=== PATIENT | female | born 1995 | race Caucasian/White ===

== ENCOUNTER → 2017-04-13 | Outpatient (CLI) | payer BC ==
[~2017-04-13] MED LIST: IBUP-1050 PO
[2017-04-16 08:05] LABS: CHLAMYDIA TRACH RNA*** NOT DETECTED (NOT DETECTED); GC (NEIS GONORRHOEAE)RNA** NOT DETECTED (NOT DETECTED)
== END | disposition home or self-care (01) ==
LOC: C.LABSPEC 14:40
PROVIDERS: ATTEND Obstetrics & Gynecology
DX: Z34.01 Encounter for supervision of normal first pregnancy, first trimester (principal)

== ENCOUNTER → 2017-04-13 | Outpatient (CLI) | payer BC | END | disposition home or self-care (01) | LOC: C.PAPS 15:12 | PROVIDERS: ATTEND Obstetrics & Gynecology | DX: Z34.01 Encounter for supervision of normal first pregnancy, first trimester (principal); R85.610 Atypical squamous cells of undetermined significance on cytologic smear of anus (ASC-US) ==

== ENCOUNTER → 2017-04-26 | Outpatient (CLI) | payer BC | END | disposition home or self-care (01) | LOC: C.LAB 11:45 | PROVIDERS: ATTEND Obstetrics & Gynecology | DX: O02.1 Missed abortion (principal); Z3A.00 Weeks of gestation of pregnancy not specified ==

== ENCOUNTER → 2017-05-03 | Outpatient (CLI) | payer BC | END | disposition home or self-care (01) | LOC: C.LAB 17:38 | PROVIDERS: ATTEND Obstetrics & Gynecology | DX: O02.1 Missed abortion (principal) ==

== ENCOUNTER → 2017-05-10 | Outpatient (CLI) | payer BC ==
[2017-05-10 15:53] LABS: BASO % 0.6 %; BASO ABS # 0.05 K/uL (0-0.2); COMPLETE YES; HEMATOCRIT 38.5 % (37-47); IG% 0.2 %; LYMPH % 22.5 %; LYMPH ABS # 1.96 K/uL (1.2-3.4); MEAN CELL VOLUME 89.1 fL (80-100); MEAN CORPUSCULAR HEMOGLOBIN 30.8 pg (25-34); MEAN CORPUSCULAR HGB CONC 34.5 g/dl (32-36); MEAN PLATELET VOLUME 9.7 fL (7.4-10.4); MONO % 5.5 %; NEUT % 70.2 %; PLATELET COUNT 243 K/uL (130-400); RED BLOOD COUNT 4.32 M/uL (4.2-5.4)
== END | disposition home or self-care (01) ==
LOC: C.LAB 15:07
PROVIDERS: ATTEND Obstetrics & Gynecology
DX: O02.1 Missed abortion (principal)

== ENCOUNTER → 2017-05-11 | Day surgery (SDC) | payer BC ==
[2017-05-10 14:26] VITALS: BMI 19.0
[~2017-05-11] VITALS: Ht 157.5 cm; Wt 47.7 kg
[~2017-05-11] MED LIST changes: +ATROPINE SULFATE 0.1 MG/ML 5ML SYR IV PRN; +DEXAMETHASONE SOD INJ 4 MG/ML VIAL ONE; +FENTANYL CITRATE INJ 50 MCG/1 ML 2 ML VIAL IV PRN; +FENTANYL CITRATE INJ 50 MCG/1 ML 2 ML VIAL ONE; +HYDROCODONE/ACETAMOPHEN 5/325MG TAB PO PRN; -IBUP-1050 PO; +IBUPROFEN 600 MG TAB PO PRN; +KETOROLAC TROMETHAMINE 15 MG/ML VIAL IV. PRN; +LACTATED RINGER'S 1000ML 1,000 ML IV SCH; +LIDOCAINE HCL 2% 2 ML VIAL (20MG/ML) ONE; +METHYLERGONOVINE MALEATE 0.2 MG/ML AMP ONE; +MIDAZOLAM HCL 1 MG/ML 2ML VIAL ONE; +ONDANSETRON INJ 2 MG/ML 2 ML VIAL IV PRN; +ONDANSETRON INJ 2 MG/ML 2 ML VIAL ONE; +OXYCODONE/ACETAMINOPHEN 5-325 TAB PO PRN; +OXYTOCIN INJ 10 UNITS/ML VIAL ONE; +PROMETHAZINE HCL INJ 12.5 MG in SODIUM CHLORIDE 0.9% 50ML 50 ML IV PRN; +PROPOFOL IV EMULSION 10 MG/ML 20 ML VIAL IV ONE; +SODIUM CHLORIDE 0.9% 1000ML 1,000 ML IV SCH
--- NOTE | 2017-05-11 10:40 | HISTORY & PHYSICAL EXAMINATION ---
DATE OF ADMISSION: 05/11/2017 HISTORY OF PRESENT ILLNESS: The patient is a 21-year-old 1, para 0. Her general health is good. She was seen in my office for care and delivery. Her last menstrual period was 02/04/2017. On her first ultrasound, she was noted to have a gestational sac of 6 weeks 6 days. There was no pole seen and there was some abnormally large yolk sac. For followup, she did blood work. Her initial blood work revealed a beta units of 27,294 with a progesterone level of 24.68. She had her beta units repeated about 6 days later and they had fallen to 24,035. At this point, a diagnosis of demise was confirmed and she has been scheduled for an outpatient D&E. PAST MEDICAL HISTORY: SOCIAL HISTORY: She is a light smoker, about 4-5 cigarettes a day. No history of excessive alcohol intake. She is ____. FAMILY HISTORY: Noncontributory. PAST SURGICAL HISTORY: She has no previous surgery. MEDICAL: No medical problems. ALLERGIES: No known drug allergies. REVIEW OF SYSTEMS: HEAD: No symptoms of frequent or severe headaches. EYES: No symptoms of blurred vision or double vision. EARS: No symptoms of frequent ear infections or difficulty hearing. NOSE: No symptoms of frequent nosebleeds or difficulty breathing through her nose. THROAT: No symptoms of frequent or severe sore throats or difficulty swallowing. RESPIRATORY SYSTEM: No history of asthma, chest pain, or shortness of breath. PHYSICAL EXAMINATION: GENERAL: Well-developed and well-nourished 21-year-old white female, alert and oriented x3 and cooperative, in no acute distress, appears her stated age. EYES: Conjunctivae are pink. Sclerae white. No evidence of jaundice. EARS: Had normal light reflex bilaterally. NOSE: Had normal mucosa. Septum is midline. There were no polyps. THROAT: No erythema or evidence of infection. Teeth are in good state of repair. HEAD: Was normocephalic and normal distribution of hair. NECK: Supple. Trachea midline. Thyroid is not enlarged. There is no adenopathy appreciated. Both carotids are of good intensity. CHEST: Clear to auscultation and percussion. No wheezes, rales or rhonchi appreciated. HEART: Regular rhythm. S1 and S2 were normal. BREASTS: Normal. ABDOMEN: Soft and nontender. PELVIC: Revealed normal-appearing cervix. Uterus was enlarged about 9-10 weeks' gestational size. There were no adnexal masses appreciated. MUSCULOSKELETAL: Revealed no calf tenderness. IMPRESSIONS OF THIS CASE: Blighted ovum.
[2017-05-11 10:54] VITALS: BP 92/70; PULSE 69; TEMP 37.2; O2SAT 100; Ht 157.5 cm; Wt 47.7 kg
--- NOTE | 2017-05-11 11:09 | History & Physical Bridge Note ---
H&P Re-Evaluation Bridge Note: I have examined the patient, reviewed the History & Physical and in the interval since the performance of the History & Physical I have noted the following changes of clinical significance: No changes noted
--- NOTE | 2017-05-11 13:10 | [facility] Post Operative Brief Note ---
Immediate Operative Summary Operative Date May 11, 2017. Pre-Operative Diagnosis Missed Post-Operative Diagnosis MISSED Procedure(s) Performed SUCTION AND SHARP EVACUATION UTERINE CONTENTS Surgeon Dr. Blayne Toussaint Test Tube Maker Surgeon(s) None Estimated Blood Loss 10 ML Findings UTERINE CONTENTS Specimens UTERINE CONTENTS Complication(s) None Disposition Recovery Room / PACU
--- NOTE | 2017-05-11 13:13 | Discharge Instructions ---
Discharge Instructions Date of Service May 11, 2017. Admission Reason for Admission: Missed Discharge Discharge Diagnosis / Problem: MISSED Discharge Goals Goal(s): Routine recovery after surgery Activity Recommendations Activity Limitations: as noted below ACTIVITY RECOMMENDATIONS: * Avoid tampons, douching, hot tubs, pools, and intercourse until bleeding has stopped. * May shower as usual. * No strenuous activity for 24-48 hours. After 24-48 hours, you may do anything you feel like doing (driving and sports are okay). SPECIAL CARE INSTRUCTIONS: Special Diet: * Mild nausea may occur in the immediate post-operative period. * Take clear liquids such as tea, cola or bouillon until all nausea has subsided; you may then resume your normal diet. Special Care: * Light bleeding and vaginal spotting can last from a few days to 3-4 weeks. Call your doctor if bleeding becomes heavier than the heaviest part of your period. * Check your temperature twice a day for one week. If it goes above 100.4 degrees Fahrenheit (38.0 Celsius), notify your doctor. * Call your doctor's office for an appointment for 6 weeks after your surgery. FOLLOW-UP VISIT: Call your doctor's office for an appointment for 6 weeks after your surgery. . Current Hospital Diet Patient's current hospital diet: Discharge Diet Recommended Diet: Regular Diet Procedures Procedures Performed: SUCTION AND SHARP EVACUATION UTERINE CONTENTS Pending Studies Studies pending at discharge: no Medical Emergencies . Who to Call and When: Medical Emergencies: If at any time you feel your situation is an emergency, please call 911 immediately. . Non-Emergent Contact Non-Emergency issues call your: Echo Technician Call Non-Emergent contact if: temperature is above 100.5 . . "Provider Documentation" section prepared by Blayne Toussaint. . VTE Core Measure Inpt VTE Proph given/why not?: Treatment not indicated
[2017-05-11 14:00] VITALS: BP 90/70; PULSE 74; TEMP 37; O2SAT 97
[2017-05-11 14:28] VITALS: BP 95/71; PULSE 75; O2SAT 95
--- NOTE | 2017-05-11 14:38 | Anesthesiology Progress Note ---
Anesthesia Post Op Note Date & Time May 11, 2017 at 14:37 Vital Signs Pain Intensity: 0 Vital Signs Past 12 Hours Date Time Temp Pulse Resp B/P (MAP) Pulse Ox O2 Delivery O2 Flow Rate FiO2 05/11/17 14:28 75 18 95/71 95 Room Air 05/11/17 14:00 37 74 18 90/70 97 Room Air 05/11/17 13:50 36.5 71 16 95/65 99 Room Air 05/11/17 13:45 74 16 100/66 99 Room Air 05/11/17 13:35 72 16 96/68 96 Room Air 05/11/17 13:25 74 16 95/62 100 Oxymask 8 05/11/17 13:15 36.3 73 16 94/60 99 Oxymask 8 05/11/17 10:54 37.2 69 18 92/70 (77) 100 Room Air Notes Mental Status: alert / awake / arousable, participated in evaluation Pt Amnestic to Procedure: Yes Nausea / Vomiting: adequately controlled Pain: adequately controlled Airway Patency, RR, SpO2: stable & adequate BP & HR: stable & adequate Hydration State: stable & adequate Anesthetic Complications: no major complications apparent
[2017-05-11 14:55] VITALS: BP 103/73; PULSE 72; TEMP 36.8; O2SAT 97
--- NOTE | 2017-05-11 15:29 | OPERATIVE REPORT ---
DATE OF OPERATION: 05/11/2017 PROCEDURE: Suction sharp evacuation of uterine contents. INDICATIONS FOR SURGERY: Missed . PREOPERATIVE DIAGNOSIS: Missed . POSTOPERATIVE DIAGNOSIS: Same, suspected blighted ovum. ESTIMATED BLOOD LOSS: 10 mL. ANESTHESIA: General. OPERATIVE FINDINGS AND PROCEDURE: The patient was brought to the OR table, correctly identified by armband and conversation. General anesthesia was administered. The patient was positioned on the operating room table. Perineum and vagina were painted with Betadine paint, draped in usual sterile fashion. Catheter was used to empty the bladder. Careful pelvic exam under anesthesia revealed an anteverted uterus of about 9 weeks' gestational size. A weighted speculum was placed in the posterior vagina. Anterior lip of the cervix was grasped with an Allis at 12 o'clock. Cervix was dilated with graduated dilators. #8 suction curette was placed in the uterine cavity. Suction was applied. Amniotic fluid and placental tissue could be seen coming through the curette. Following thorough evacuation with suction curette a sharp curette was placed in the uterine cavity and the uterine cavity was gently curetted and then the suction was reapplied to remove all remaining fragments and debris. Following this, hemostasis was excellent. Instruments were removed. I did a bimanual uterine massage. Uterus contracted nicely. Size of uterus had decreased substantially. Hemostasis was excellent. I attest to the content of the Intraoperative Record and any orders documented therein. Any exception s are noted below.
== END | disposition home or self-care (01) ==
LOC: C.ACU 09:45
PROVIDERS: ATTEND Obstetrics & Gynecology
DX: O02.1 Missed abortion (principal); F17.200 Nicotine dependence, unspecified, uncomplicated; Z68.1 Body mass index [BMI] 19.9 or less, adult

== ENCOUNTER 2020-04-19 07:39 | Inpatient (IN) ==
[2020-04-19] MEDS ORDERED: OXYTOCIN 30 UNITS/500 ML BAG IV PRN ×2 (08:11→08:13)
[2020-04-19 08:39] LABS: Hematocrit (blood only) 37.2 % (37-47); Hemoglobin 12.3 g/dL (12.0-16.0); Mean Corpuscular Hemoglobin 28.8 pg (25-34); Mean Corpuscular Volume 87.1 fL (80-100); Mean Platelet Volume 10.6 fL (7.4-10.4); Platelet Count 219 K/uL (130-400); RDW Coefficient of Variation 14.6 % (11.5-14.5); RDW Standard Deviation 46.2 fL (36.4-46.3); Red Blood Count 4.27 M/uL (4.2-5.4); White Blood Count 11.17 K/uL (4.8-10.8)
--- NOTE | 2020-04-19 08:55 | Medical Student H&P ---
Date of Service April 19, 2020 Assessment & Plan Admission and Anticipated Discharge Date Admission Date: April 19, 2020 Assessment: Patient is a 24 year old woman being induced at 41.2 weeks GA by ultrasound with a cervical ripening watters that fell out this morning. She prefers an epidural as pain management. Possible history of spina bifida with no past workup. Fetus is category 1 as per monitoring. Plan: Consult neurology regarding possible spina bifida and effect on today's epidural placement. Continue to monitor cervix as and administer pitocin. AROM planned. Planned vaginal delivery. History of Present Illness Primary Care Provider: Henny Ramos DO CC: Induction of labor The patient is a 24 year old woman who is being induced today at 41.2 weeks GA due to being postdate. Due date was 04/10/20 by ultrasound with uncertain LMP. A cervical ripening watters was placed and pitocin administration is planned. The patient has a reactive NST. Preferred pain management is an epidural but would like to know other options available as well. Today, she does not have any contractions yet, although she has had rola gonzalez for the past week. She is not currently in any pain. She had some red-brown blood as the watters was removed and may have passed her mucus plug at this time. There has not been any fluid leakage. She feels active movement. The father Adam, her boyfriend, is present for the delivery today. No complications during this . She received appropriate care. Possible history of spina bifida with no past work-up. OB Labs: Blood Type A Negative 11/13/19 Antibody Screen NEGATIVE 01/22/20 Hemoglobin 11.4 g/dL (12.0-16.0) L 01/22/20 Hematocrit 34.6 % (37-47) L 01/22/20 Mean Corpuscular Volume 91.8 fL (80-100) 11/13/19 Platelet Count 264 K/uL (130-400) 11/13/19 Rubella IgG Antibody Immune (Immune) 11/13/19 Rapid Plasma Reagin Nonreactive (Nonreactive) 11/13/19 Hepatitis B Surface Antigen Neg (Neg) 11/13/19 HIV (1&2) Ab and P24 Ag, 4th Gener Neg (Neg) 11/13/19 Glucose 1 Hour 50 gm Load 128 mg/dl (70-130) 01/22/20 OB Optional Labs: Chlamydia trachomatis RNA NOT DETECTED (NOT DETECTED) 11/13/19 Neisseria gonorrhoeae RNA NOT DETECTED (NOT DETECTED) 11/13/19 Patient is Rh-, GBS-, COVID-19- on 04/07/20. Glucose - 128 - 01/22/20 Panorama - low risk for all - 11/20/19 CF and spinal muscular atrophy negative - 11/19/19 Allergies Allergy/AdvReac Type Severity Reaction Status Date / Time benzoyl peroxide Allergy Unknown HIVES Verified 04/19/20 07:59 Home Medications Home Medications Medication Instructions Recorded Confirmed Type PNV cmb#95-ferrous fumarate-FA 1 tab PO DAILY 04/18/20 04/19/20 History [] Patient History Medical History (Updated 04/19/20 @ 14:16 by Angie Lala MD, FACOG) Acute bronchitis Encounter for anatomic survey Spina bifida minor Varicella vaccine Surgical History H/O oral surgery S/P dilatation and curettage D&E 2016 Family History Father Hypertension Diabetes Grandmother (Maternal) Diabetes Grandmother (Paternal) Coronary heart disease Social History Smoking Status: Current every day smoker Hx Alcohol Use: No Hx Substance Use: No Preferred Language: Ukrainian Children'S Tutor Required: No Beliefs That Will Affect Care: None marital status: Single marital status details: Adam Martin (23) [phone] Current Living Situation: Significant Other Current Living Situation Comment: lives with boyfriend current occupational status: unemployed Other Information That Helps Us Care for You: No Feels Safe at Home: Yes Safety Concerns: Feels Safe At This Time OB History G1: Spontaneous at 10 weeks 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 Uncertain Flow: normal Menstrual regularity: regular Monthly: Yes Age at menarche: 12 On control pills at conception: Yes Date of positive home test: 11/04/19 Menstrual history comments: 28 day cycles Details: last pap on 11/13/19 was normal Review of Systems as per Subjective / HPI; no problem reported no cough, no chest congestion, no dyspnea and no problem reported no chest pain, no edema and no calf pain no abdominal pain and no nausea Normally constipated, yesterday had a lot of diarrhea. No BM today. + urinary frequency; no dysuria and no difficulty urinating + headache(s) sinus headache from last night's rain Physical Exam Constitutional: WD/WN, vitals as above Respiratory: normal respiratory effort, lungs clear to auscultation Cardiovascular: RRR, no murmur, no edema Heart Sounds: normal S1 and normal S2 Extremities: no calf tenderness and no varicosities Gastrointestinal (Abdomen): gravid, nontender Psychiatric: A+Ox3, euthymic affect Genitourinary: 4 cm dilated, 50% effacement, -[address] Lala Monitoring External Monitor Baseline 115 Moderate variability Accelerations present No decelerations Tocodynamometer rare contractions Results & Data ([facility]) Vital Signs (Past 12 Hours) Vital Signs Temp Pulse Resp BP 04/19/20 07:48 36.8 C 96 H 16 129/84 Laboratory Results 04/19/20 Range/Units 08:22 WBC 11.17 H (4.8-10.8) K/uL RBC 4.27 (4.2-5.4) M/uL Hgb 12.3 (12.0-16.0) g/dL Hct 37.2 (37-47) % MCV 87.1 (80-100) fL MCH 28.8 (25-34) pg MCHC 33.1 (32-36) g/dL RDW Std Deviation 46.2 (36.4-46.3) fL RDW Coeff of Sunny 14.6 H (11.5-14.5) % Plt Count 219 (130-400) K/uL MPV 10.6 H (7.4-10.4) fL COVID-19- 04/07/20, GBS-, Rh -, HIV- Code Status & VTE Plan Code Status Full code
[2020-04-19 09:03] LABS: Mean Corpuscular Hgb Conc 33.1 g/dL (32-36)
[2020-04-19] MEDS: LACTATED RINGER'S 1,000 ML IV PRN ×3 (09:14→23:50)
--- NOTE | 2020-04-19 14:12 | History & Physical Report ---
Date of Service April 19, 2020 Assessment & Plan (1) with 41 completed weeks gestation: Admission and Anticipated Discharge Date Admission Date: April 19, 2020 plan induction of labor for postdates. Plan to start with pit and arom when needed. fetus category one and anticipate . Patient notes to anesthesia that she has a "mild " case of spina bifida. There is some question as to whether or not she can have any neuroaxial anesthesia. Plan neurology consult for recommendation. History of Present Illness Chief Complaint: induction Primary Care Provider: Henny Ramos DO (late entry) Patient is a 24yowf with iup at 41+ weeks by first trimester ultrasound who presents to labor and delivery for induction of labor secondary to postdates. She feels well. Michel placed last night and fell out this am . Notes some bloody d/c. no lof. Notes rare contractions. has essentially been uncomplicated. Late presentation to care at 18 weeks. labs--A-/ab-/ri/rprnr/hepb-/hiv-/gtt x 2 nl/gc/ct-/cf/sma-/ panorama low risk. gbs neg. covid neg/ and 04/07. Allergies Allergy/AdvReac Type Severity Reaction Status Date / Time benzoyl peroxide Allergy Unknown HIVES Verified 04/19/20 07:59 Home Medications Home Medications Medication Instructions Recorded Confirmed Type PNV cmb#95-ferrous fumarate-FA 1 tab PO DAILY 04/18/20 04/19/20 History [] Patient History Medical History (Updated 04/19/20 @ 14:16 by Angie Lala MD, FACOG) Acute bronchitis Encounter for anatomic survey Spina bifida minor Varicella vaccine Surgical History H/O oral surgery S/P dilatation and curettage D&E 2017 Family History Father Hypertension Diabetes Grandmother (Maternal) Diabetes Grandmother (Paternal) Coronary heart disease Social History Smoking Status: Current every day smoker Hx Alcohol Use: No Hx Substance Use: No Preferred Language: Turkish Rn Private Duty Required: No Beliefs That Will Affect Care: None marital status: Single marital status details: Adam Martin (23) [phone] Current Living Situation: Significant Other Current Living Situation Comment: lives with boyfriend current occupational status: unemployed Other Information That Helps Us Care for You: No Feels Safe at Home: Yes Safety Concerns: Feels Safe At This Time OB History g1--05/22, sab with D&E g2--present [employer] STATIONS History no stds, no abnl paps, regular menses, monthly Review of Systems All systems reviewed & are unremarkable except as noted in HPI & below Physical Exam Constitutional: WD/WN, vitals as above Psychiatric: A+Ox3, euthymic affect Genitourinary: cx on admission /-2/ant/soft efw 7-8# toco--rare efm--category one strip Results & Data ([facility]) Vital Signs (Past 12 Hours) Vital Signs Temp Pulse Resp BP 04/19/20 13:00 80 117/80 04/19/20 12:59 20 04/19/20 12:04 92 H 20 115/73 04/19/20 11:03 36.8 C 86 20 117/70 04/19/20 10:04 81 20 121/74 04/19/20 07:48 36.8 C 96 H 16 129/84 Coding Level of Care Code None Diagnoses with 41 completed weeks gestation [id number].[id number]
--- NOTE | 2020-04-19 15:55 | Magnetic Resonance Report ---
MR lumbar spine wo con CLINICAL HISTORY: 24 years-old Female with ?spina bifida occulta vs tethered cord. Follow-up study i n a patient with lipoma of the filum terminale COMPARISON: MRI lumbar spine 07/24/2011 TECHNIQUE: Multiplanar, multi sequence MRI of the lumbar spine was performed without intravenous cont rast. FINDINGS: Lipoma of the filum terminale redemonstrated which measures 2 x 2 x 12 mm (for example please see otto ge 14 series 8 and image 8 of series 5). The conus medullaris terminates at the L1 level. No evidence of tethered cord. Signal within the imaged thoracic spinal cord is unremarkable. There is no acute f racture, subluxation, bone marrow or soft tissue edema. Intrauterine fetus in cephalic positioning is noted. There is bilateral pelvocaliectasis which is symmetric. 9 mm probable cyst of the interpolar left kidney. T12-L1: No central canal or neural foraminal stenosis. L1-L2: No central canal or neural foraminal stenosis. L2-L3: No central canal or neural foraminal stenosis. L3-L4: No central canal or neural foraminal stenosis. L4-L5: Mild to moderate facet arthrosis with trace facet effusions and ligamentum flavum thickening. No central canal or neural foraminal stenosis. L5-S1: Mild facet arthrosis with ligamentum flavum thickening. No central canal or neural foraminal s tenosis. IMPRESSION: 1. Lipoma of the filum terminale redemonstrated. No evidence of tethered cord. 2. No central canal or foraminal narrowing. 3. Intrauterine fetus in cephalic positioning. 4. Mild bilateral pelvocaliectasis is likely physiologic related to . ACT 112: Negative or not required by law. The above report was generated using voice recognition software. It may contain grammatical, syntax o r spelling errors. Electronically signed by: Wilmer Ferguson M.D. 04/19/2020 3:54 PM
--- NOTE | 2020-04-19 16:16 | Neurology Consultation ---
Date of Consultation April 19, 2020 Assessment & Plan (1) with 41 completed weeks gestation: (2) Fibrolipoma of filum terminale: Nilam Major is a 24 yo woman at 41w GA w/ PMH of urge incontinence and possible spina bifida whom neurology is consulted on for ability to have ne uroaxial anesthesia. # Lipoma of filum terminale: MRI L-spine shows a [id number] lipoma of the filum terminale with no signs of tethered cord or low lying conus medullaris (conus terminates at L1). This is likely an incidental finding as most individuals would not be expected to have symptoms from this, however, further workup outside of would likely be warranted (review by neurosurgery and urology after she is out of the period). - no neurological contraindication to neuroaxial anesthesia - no neurological contraindication to vaginal delivery or pushing identified on available imaging of the L-spine - she can follow up in the neurology clinic in 4-6 weeks to check in and have those referrals arranged Thank you for this interesting consult. Plan of care discussed with anesthesia and OB. Please text or call with questions. History of Present Illness Attending Physician: Angie Lala MD, FACOG History of Present Illness Nilam Major is a 24 yo woman at 41w GA w/ PMH of urge incontinence and possible spina bifida whom neurology is consulted on for ability to have neuroaxial anesthesia. Nilam reports that she started to have problems with urinary incontinence when she was about 2 yo. She was taken to her breakfast cook and told that her pelvis was "crooked" and sacrum was tilted to the left. Urinary issues became more bothersome when she was a teenager and saw urology who suspected possible spina bifida. She reports that she has never seen neurology or neurosurgery for this issue. Does believe that she had an MRI L-spine about 8 years ago when she was in high school, does not know results for sure. Denies any current issues with numbness/tingling in her legs but will notice intermittent tingling in bilateral calves if she sits for too long. Denies saddle anesthesia. Will have occasional urinary/fecal incontinence and intermittent sharp painful sensation over her sacral area. Denies any weakness in BLEs or BUEs. On examination today, she does not have a sacral dimple, dermal sinus, hypertrichosis or clear subcutaneous nodule/lipoma. MRI L-spine shows a lipoma of the filum terminale with normal location of the conus (terminates at L1). No evidence of tethered cord identified. Mild to moderate facet arthrosis with ligamentum flavum thickening identified at L4/L5 and L5/S1. Allergies Allergy/AdvReac Type Severity Reaction Status Date / Time benzoyl peroxide Allergy Unknown HIVES Verified 04/19/20 07:59 Home Medications Home Medications Medication Instructions Recorded Confirmed Type PNV cmb#95-ferrous fumarate-FA 1 tab PO DAILY 04/18/20 04/19/20 History [] Patient History Medical History (Updated 04/19/20 @ 16:31 by Ibis Cage MD) Acute bronchitis Encounter for anatomic survey Varicella vaccine Surgical History H/O oral surgery S/P dilatation and curettage D&E 2016 Family History Father Hypertension Diabetes Grandmother (Maternal) Diabetes Grandmother (Paternal) Coronary heart disease Social History Smoking Status: Current every day smoker Hx Alcohol Use: No Hx Substance Use: No Preferred Language: [place] Islander Director Of Application Development Required: No Beliefs That Will Affect Care: None marital status: Single marital status details: Adam Martin (23) [phone] Current Living Situation: Significant Other Current Living Situation Comment: lives with boyfriend current occupational status: unemployed Other Information That Helps Us Care for You: No Feels Safe at Home: Yes Safety Concerns: Feels Safe At This Time Review of Systems Review of Systems: 14 point review of systems completed and negative except as in HPI. Exam (Neuro) Physical Exam: General Exam: GEN: NAD, sitting in bed. HEENT: No conjunctival injection, no rhinorrhea. CV: RRR, no peripheral edema PULM: Nonlabored respirations on room air. Neuro Exam: MS: Awake and Alert. Oriented to person, place, and date. Speech fluent and appropriate without dysarthria or paraphasic errors. Language intact including naming, comprehension, repetition. Cognition and memory grossly intact. Attention intact. No neglect. CN: Visual urias full. No extinction to double simultaneous stimuli. No optic disc edema on fundoscopic exam. PERRLA OU. EOMI without nystagmus. Facial sensation intact to LT. Facial muscles full and symmetric. Hearing intact to conversation. Uvula midline with symmetric palatal elevation. Shoulder shrug normal. Tongue midline. MOTOR: Normal bulk and tone. No pronator drift. BUE strength 5/5 at deltoids, biceps, triceps, wrist flexors and extensors, and hand grasp bilaterally. BLE strength 5/5 at iliopsoas, hamstrings, quadriceps, tibialis anterior, and gastrocnemius bilaterally. REFLEXES: 2+ at biceps, triceps, brachioradialis, 2+ patella and Achilles bilaterally. Flexor plantar responses bilaterally. SENSORY: Intact to LT without extinction to double simultaneous stimuli. Vibration intact throughout. COORDINATION: No dysmetria or ataxia on [id number] bilaterally. Normal Adilson bilaterally. GAIT: deferred given physical status (in process of labor induction) Results & Data ([facility]) Vital Signs (Past 12 Hours) Vital Signs Temp Pulse Resp BP 04/19/20 15:44 36.9 C 73 20 116/77 04/19/20 14:12 83 108/67 04/19/20 13:00 80 117/80 04/19/20 12:59 20 04/19/20 12:04 92 H 20 115/73 04/19/20 11:03 36.8 C 86 20 117/70 04/19/20 10:04 81 20 121/74 04/19/20 07:48 36.8 C 96 H 16 129/84 PG Care Time/CCT Total # of Minutes Spent Total Time Spent with Patient: Total time spent is greater than 50% in coordination of care (as documented) at patient's floor/unit and/or counseling patient: Coding Level of Care Code 07312 Inpt Consult Level 5 Diagnoses with 41 completed weeks gestation Z3A.41 Fibrolipoma of filum terminale D17.79
--- NOTE | 2020-04-19 17:32 | Labor Progress Brief Note ---
Date of Service April 19, 2020 Subjective back from mri, pit restarted Assessment & Plan (1) with 41 completed weeks gestation: Admission and Anticipated Discharge Date Admission Date: April 19, 2020 per anesthesia, can have epidural. restart induction, pit restarted. Physical Exam Constitutional: WD/WN, vitals as above Psychiatric: A+Ox3, euthymic affect Genitourinary: deferred cx toco--q3-5min, pit at 5 efm--120s with mod variability, accels to 140s, no decels Results & Data ([facility]) Vital Signs (Past 12 Hours) Vital Signs Temp Pulse Resp BP 04/19/20 16:54 73 20 113/75 04/19/20 15:44 36.9 C 73 20 116/77 04/19/20 14:12 83 108/67 04/19/20 13:00 80 117/80 04/19/20 12:59 20 04/19/20 12:04 92 H 20 115/73 04/19/20 11:03 36.8 C 86 20 117/70 04/19/20 10:04 81 20 121/74 04/19/20 07:48 36.8 C 96 H 16 129/84 Coding Level of Care Code None Diagnoses with 41 completed weeks gestation Z3A.41
--- NOTE | 2020-04-19 22:15 | Labor Progress Brief Note ---
Date of Service April 19, 2020 Subjective Had been sleeping. Notes occasional contractions. Assessment & Plan (1) with 41 completed weeks gestation: arom. continue current management. fetus category one. anticipate . Admission and Anticipated Discharge Date Admission Date: April 19, 2020 Physical Exam Constitutional: WD/WN, vitals as above Psychiatric: A+Ox3, euthymic affect Genitourinary: cx--4/75/-2 arom--clear toco--q3-5min, pit at 17 efm--115 with mod variability, accels present, no decels Results & Data ([facility]) Vital Signs (Past 12 Hours) Vital Signs Temp Pulse Resp BP Pulse Ox 04/19/20 22:01 83 92 04/19/20 22:00 85 94 04/19/20 21:56 76 94 04/19/20 21:54 75 94 04/19/20 21:51 78 95 04/19/20 21:47 81 94 04/19/20 21:46 80 95 04/19/20 21:41 75 95 04/19/20 21:38 78 94 04/19/20 21:36 76 95 04/19/20 21:33 72 94 04/19/20 21:31 76 94 04/19/20 21:26 75 91 04/19/20 21:21 74 92 04/19/20 21:16 75 94 04/19/20 21:11 74 94 04/19/20 21:06 79 91 04/19/20 21:01 77 93 04/19/20 21:00 73 94 04/19/20 20:56 74 18 92 04/19/20 20:51 74 96 04/19/20 20:46 73 95 04/19/20 20:43 78 94 04/19/20 20:41 79 97 04/19/20 20:36 79 95 04/19/20 20:30 86 94 04/19/20 20:27 76 91 04/19/20 20:22 79 93 04/19/20 20:17 79 92 04/19/20 19:12 72 122/78 04/19/20 18:01 75 18 114/67 04/19/20 16:54 73 20 113/75 04/19/20 15:44 36.9 C 73 20 116/77 04/19/20 14:12 83 108/67 04/19/20 13:00 80 117/80 04/19/20 12:59 20 04/19/20 12:04 92 H 20 115/73 04/19/20 11:03 36.8 C 86 20 117/70 Coding Level of Care Code None Diagnoses with 41 completed weeks gestation Z3A.41
[2020-04-19] MEDS ORDERED: ePHEDrine sulfate 50 MG/ML AMP ONE (23:22)
[2020-04-19] MEDS ORDERED: fentaNYL citrate 100 MCG/2 ML VIAL ONE (23:22)
[2020-04-19] MEDS ORDERED: BUPIVACAINE 0.25% 30 ML VIAL ONE (23:22)
[2020-04-19] MEDS ORDERED: fentaNYL 2MCG/ML ROPIV 1.25MG/ML 100 ML BAG EPI ONE (23:23)
--- NOTE | 2020-04-19 23:39 | Anesthesiology Consultation ---
Date of Service April 19, 2020 Assessment & Plan (1) Encounter for pre-operative examination: Chart Review Chart Review: Patient NOT seen in Pre Admission Testing and Acceptable Risk for Labor Epidural Consults Requested none ASA ASA2 Proposed Anesthesia Anesthesia Type: Labor Epidural Risk / Benefits Reviewed With: PT / POA / Parent / Guardian, Accepts Plan and Informed Consent Obtained Additional Notes Thank you to Neurology for the excellent and thorough evaluation ensuring that epidural placement would be appropriate in this patent. History Height/Weight Height: 5 ft 1 in Weight: 63.503 kg Allergies Allergy/AdvReac Type Severity Reaction Status Date / Time benzoyl peroxide Allergy Unknown HIVES Verified 04/19/20 07:59 Medications Home Medications Medication Instructions Recorded Confirmed Last Taken PNV cmb#95-ferrous fumarate-FA 1 tab PO DAILY 04/18/20 04/19/20 04/19/20 07:00 [] Active Medications Generic Name Dose Route Start Last Admin Trade Name Freq PRN Reason Stop Dose Admin Lactated Ringer's 1,000 mls @ 125 mls/hr 04/19/20 08:11 04/19/20 23:50 Lr IV 04/21/20 08:10 999 mls/hr .Q8H PRN Administration L&D Protocol Protocol Oxytocin 30 units in 500 mls @ 19 mls/hr 04/19/20 08:13 04/19/20 23:15 Pitocin IV 04/21/20 08:12 1.14 units/hr .Q24H PRN 19 mls/hr Labor Induction/Augmentation Titration Protocol 1.14 UNITS/HR NPO Date Last Intake of Fluids: 05/12/20 Time Last Intake of Fluids: 23:36 Date Last Intake of Solids: 04/19/20 Time Last Intake of Solids: 07:00 Past Medical History Medical History Acute bronchitis Encounter for anatomic survey Varicella vaccine Exercise / Class Metabolic Activity II 4-5 Yardwork/Stairs/Walk up hill Past Family History Family History Father Hypertension Diabetes Grandmother (Maternal) Diabetes Grandmother (Paternal) Coronary heart disease Past Surgical History Surgical History H/O oral surgery S/P dilatation and curettage D&E 2016 Social History Smoking Status: Current every day smoker tobacco type: e-cigarettes Hx Alcohol Use: No Hx Substance Use: No substance use type: does not use Review of Systems Patient denies history of abnormal bleeding or bleeding disorder. Patient denies active use of anticoagulants other than low dose aspirin. Patient denies numbness, tingling or weakness in lower extremities. Negative for chest pain or shortness of breath. Physical Exam Vital Signs Last Vital Signs Temp 36.7 C 04/19/20 22:13 Pulse 78 04/19/20 23:34 Resp 18 04/19/20 22:13 BP 136/85 04/19/20 23:22 Pulse Ox 95 04/19/20 23:34 Constitutional not obese (gravid uterus) ENMT Mouth: no TMJ abnormality and oral opening not small Thyromental Distance: > or= 3.5 Finger Breadths Mallampati Class: II Mouth / Teeth: 1. chipped 2. chipped - repaired Neck normal visual inspection; neck extension not limited Respiratory normal respiratory effort Auscultation: lungs clear to auscultation bilaterally Cardiovascular Rate/Rhythm: regular rate and regular rhythm Heart Sounds: no murmur Neurologic moves all extremities Motor/Sensory: no sensory deficit Psychiatric Orientation: alert and oriented x 3 Testing Laboratory Results 04/19/20 08:22
[2020-04-20] MEDS ORDERED: DiphenhydrAMINE HCL 50 MG/ML VIAL IV PRN (00:23)
[2020-04-20] MEDS ORDERED: ePHEDrine sulfate 50 MG/ML AMP IV PRN (00:23)
[2020-04-20] MEDS ORDERED: NALOXONE HCL 0.4 MG/1 ML VIAL/CARP IV PRN (00:23)
[2020-04-20] MEDS ORDERED: ONDANSETRON INJ 2 MG/ML 2 ML VIAL IV PRN (00:23)
[2020-04-20] MEDS ORDERED: NALOXONE HCL 1 MG in SODIUM CHLORIDE 0.9% 1000ML 1,000 ML IV PRN (00:23)
[2020-04-20] MEDS ORDERED: fentaNYL 2MCG/ML ROPIV 1.25MG/ML 100 ML BAG EPI PRN (00:23)
--- NOTE | 2020-04-20 04:43 | Labor Progress Brief Note ---
Date of Service April 20, 2020 Subjective comfortable Assessment & Plan (1) with 41 completed weeks gestation: progressing nicely, fetus category one. anticipate . Admission and Anticipated Discharge Date Admission Date: April 19, 2020 Physical Exam Constitutional: WD/WN, vitals as above Psychiatric: A+Ox3, euthymic affect Genitourinary: cx--8/100/0 toco--q2-3min, pit at 25 efm--120 with mod variabity, small accels, eary decels with some contractions Results & Data ([facility]) Vital Signs (Past 12 Hours) Vital Signs Temp Pulse Resp BP Pulse Ox 04/20/20 04:39 89 84 L 04/20/20 04:34 85 84 L 04/20/20 04:30 86 117/77 04/20/20 04:29 81 83 L 04/20/20 04:24 85 84 L 04/20/20 04:19 84 75 L 04/20/20 04:15 89 117/85 04/20/20 04:14 82 66 L 04/20/20 04:09 83 84 L 04/20/20 04:04 79 84 L 04/20/20 04:00 83 120/81 04/20/20 03:59 80 89 L 04/20/20 03:54 84 69 L 04/20/20 03:49 84 81 L 04/20/20 03:45 83 117/74 04/20/20 03:44 82 85 L 04/20/20 03:39 80 89 L 04/20/20 03:34 78 87 L 04/20/20 03:30 36.7 C 83 18 115/74 04/20/20 03:29 78 85 L 04/20/20 03:24 87 83 L 04/20/20 03:19 89 82 L 04/20/20 03:15 83 109/67 04/20/20 03:14 78 86 L 04/20/20 03:09 80 84 L 04/20/20 03:04 77 85 L 04/20/20 03:01 71 114/72 04/20/20 02:59 80 83 L 04/20/20 02:54 84 83 L 04/20/20 02:49 80 87 L 04/20/20 02:45 85 113/69 04/20/20 02:44 87 80 L 04/20/20 02:39 81 81 L 04/20/20 02:34 87 80 L 04/20/20 02:30 80 107/67 04/20/20 02:29 78 85 L 04/20/20 02:24 81 87 L 04/20/20 02:19 80 87 L 04/20/20 02:16 76 114/72 04/20/20 02:14 79 88 L 04/20/20 02:09 80 87 L 04/20/20 02:04 85 87 L 04/20/20 02:00 88 113/68 04/20/20 01:59 88 87 L 04/20/20 01:54 79 88 L 04/20/20 01:49 80 87 L 04/20/20 01:46 82 115/70 04/20/20 01:44 81 92 04/20/20 01:43 83 94 04/20/20 01:39 86 89 L 04/20/20 01:34 87 91 04/20/20 01:30 78 119/78 04/20/20 01:29 82 84 L 04/20/20 01:24 89 93 04/20/20 01:19 84 88 L 04/20/20 01:15 74 120/71 04/20/20 01:14 82 88 L 04/20/20 01:09 77 89 L 04/20/20 01:04 82 89 L 04/20/20 01:00 78 127/68 04/20/20 00:59 80 90 04/20/20 00:54 74 89 L 04/20/20 00:49 78 87 L 04/20/20 00:44 76 89 L 04/20/20 00:40 18 04/20/20 00:39 75 90 04/20/20 00:34 81 86 L 04/20/20 00:30 36.9 C 18 114/95 04/20/20 00:29 79 86 L 04/20/20 00:25 18 04/20/20 00:24 77 82 L 04/20/20 00:20 18 04/20/20 00:19 79 88 L 04/20/20 00:16 18 04/20/20 00:14 78 90 04/20/20 00:13 79 118/78 04/20/20 00:11 81 18 129/82 04/20/20 00:10 76 125/82 04/20/20 00:09 77 89 L 04/20/20 00:06 94 H 18 87 L 04/20/20 00:05 72 136/83 04/20/20 00:04 77 138/79 89 L 04/20/20 00:01 18 04/19/20 23:59 174 H 132/79 91 04/19/20 23:55 78 94 04/19/20 23:54 77 90 04/19/20 23:49 79 93 04/19/20 23:44 76 92 04/19/20 23:39 77 85 L 04/19/20 23:37 74 94 04/19/20 23:34 78 95 04/19/20 23:32 73 94 04/19/20 23:29 76 94 04/19/20 23:27 75 93 04/19/20 23:24 76 93 04/19/20 23:22 73 136/85 04/19/20 23:21 76 93 04/19/20 23:19 78 89 L 04/19/20 23:14 74 88 L 04/19/20 23:09 73 91 04/19/20 22:58 66 94 04/19/20 22:55 73 94 04/19/20 22:53 73 95 04/19/20 22:49 72 94 04/19/20 22:48 72 94 04/19/20 22:43 71 95 04/19/20 22:38 72 95 04/19/20 22:33 71 94 04/19/20 22:32 70 94 04/19/20 22:27 71 95 04/19/20 22:23 72 127/75 04/19/20 22:22 73 95 04/19/20 22:13 36.7 C 18 04/19/20 22:01 83 92 04/19/20 22:00 85 94 04/19/20 21:56 76 94 04/19/20 21:54 75 94 04/19/20 21:51 78 95 20 21:47 81 94 20 21:46 80 95 04/19/20 21:41 75 95 20 21:38 78 94 04/19/20 21:36 76 95 04/19/20 21:33 72 94 04/19/20 21:31 76 94 04/19/20 21:26 75 91 04/19/20 21:21 74 92 04/19/20 21:16 75 94 04/19/20 21:11 74 94 04/19/20 21:06 79 91 04/19/20 21:01 77 93 04/19/20 21:00 73 94 04/19/20 20:56 74 18 92 04/19/20 20:51 74 96 04/19/20 20:46 73 95 04/19/20 20:43 78 94 04/19/20 20:41 79 97 04/19/20 20:36 79 95 04/19/20 20:30 86 94 04/19/20 20:27 76 91 04/19/20 20:22 79 93 04/19/20 20:17 79 92 04/19/20 19:12 72 122/78 04/19/20 18:01 75 18 114/67 04/19/20 16:54 73 20 113/75 Coding Level of Care Code None Diagnoses with 41 completed weeks gestation Z3A.41
[2020-04-20] MEDS: LACTATED RINGER'S 1,000 ML IV PRN (05:28)
[2020-04-20] MEDS ORDERED: METHYLERGONOVINE MALEATE 0.2 MG/ML AMP ONE (07:33)
[2020-04-20] MEDS ORDERED: OXYCODONE/ACETAMINOPHEN 5mg/325mg TAB PO PRN (07:58)
--- NOTE | 2020-04-20 08:03 | Delivery Summary ---
Vaginal Delivery Summary Date of Service April 20, 2020 Vaginal Delivery Summary Pre-operative Diagnosis: at 41 weeks Post-operative Diagnosis: same Procedure: pitocin induction arom epidural third degree and right labial laceration and repair EBL: 450cc Anesthesia: epidural Procedure: The patient pushed for about 20 minutes to deliver a viable male infant in judith position. The nose and mouth were bulb suctioned on the perineum and the rest of the infant was then delivered without difficulty. The baby was vigorous. The nose and mouth were again bulb suctioned and the infant was placed in the maternal abdomen for drying and attention. Cord was clamped and cut at one minute of life. Cord blood and segment obtained. Placenta delivered via manual extraction, exploration of the uterus revealed no retained pocs. Cervix/sulci/rectum were intact. A third degree perineal laceration was repaired in the normal standard fashion. Sphincter repaired with 3 figure of eight sutures. A rectal exam was then done and I thought I missed rectal involvement. Stitches removed. On reexamination, there was no rectal involvement. The sphinchter again repaired with 3 sutures. Rectal exam intact, no sutures. Rest of the repair then done. Hemostasis obtained with dilute pitocin and fundal massage and im methergine. Apgars were pending. Mother and baby doing well at the end of the delivery. [facility] Vaginal Delivery Charge Vaginal Delivery Codes: 84579 global code for the antepartum, delivery, and post-
[2020-04-20] MEDS ORDERED: BENZOCAINE 20% AER SPR 82.5 GM CAN EXT PRN (08:12)
[2020-04-20] MEDS ORDERED: SUPERCREAM 0.870% 15 GM JAR EXT PRN (08:12)
[2020-04-20] MEDS ORDERED: METHYLERGONOVINE MALEATE 0.2 MG/ML AMP IM ONE (08:25)
[2020-04-20] MEDS ORDERED: OXYTOCIN 30 UNITS/500 ML BAG IV PRN (08:30)
[2020-04-20] MEDS ORDERED: DIPHTHERIA/TETANUS/PERTUSSIS 0.5 ML SYR/VIAL IM ONE (08:30)
[2020-04-20] MEDS: PRENATAL VITAMIN 1 TAB PO SCH (08:31)
[2020-04-20] MEDS: DOCUSATE SODIUM 100 MG CAP PO SCH ×2 (08:31→20:53)
--- NOTE | 2020-04-20 09:45 | Anesthesia Procedure Note ---
Date of Service April 20, 2020 Anesthesia Post Epidural Note Vital Signs Vital Signs: Temp Pulse Resp BP Pulse Ox 36.4 C L 91 H 20 120/81 82 L 04/20/20 07:00 04/20/20 09:30 04/20/20 09:30 04/20/20 09:30 04/20/20 07:19 Notes Mental Status: alert / awake / arousable and participated in evaluation Patient Amnestic to Procedure: Yes Nausea / Vomiting: adequately controlled Pain: adequately controlled Airway Patency, RR, SpO2: stable & adequate BP & HR: stable & adequate Hydration State: stable & adequate Anesthetic Complications: no major complications apparent and Pt Satisfied with anesthetic care
[2020-04-20] MEDS ORDERED: LIDOCAINE 2% JELLY 5 ML TUBE ONE (13:16)
--- NOTE | 2020-04-20 15:02 | Neurology Progress Note ---
Date of Service April 20, 2020 Assessment & Plan (1) Fibrolipoma of filum terminale: Nilam Major is a 24 yo woman at PPD1 w/ PMH of urge incontinence and lipoma of filum terminale whom neurology is consulted on for ability to have neuroaxial anesthesia. # Lipoma of filum terminale: MRI L-spine shows a [id number] lipoma of the filum terminale with no signs of tethered cord or low lying conus medullaris (conus terminates at L1). This is likely an incidental finding as most individuals would not be expected to have symptoms from this, however, further workup outside of would likely be warranted (review by neurosurgery and urology after she is out of the period) given her reported urinary symptoms at baseline. - discussed findings with her and she would definitely be interested in outpatient follow up in a few weeks for urology, NSGY and pelvic floor PT to help with her baseline urinary incontinence - she can follow up in the neurology clinic in 4-6 weeks to check in and have those referrals arranged Thank you for this interesting consult. Plan of care discussed with primary team. Please text or call with questions. Admission and Anticipated Discharge Date Admission Date: April 19, 2020 Subjective Gave to son, Frank, this morning. Notes that she has been having difficulty with voiding the last few hours and has some pain/tenderness in her perineum. Up for ambulation without difficulty. Review of Systems Review of Systems: 14 point review of systems completed and negative except as in HPI. Results & Data ([facility]) Vital Signs (Past 12 Hours) Vital Signs Temp Pulse Pulse Resp BP BP Pulse Ox 04/20/20 11:15 37.4 C 79 18 123/83 98 04/20/20 10:25 105 H 20 111/76 04/20/20 09:46 82 119/66 04/20/20 09:45 37.5 C 20 04/20/20 09:30 91 H 20 120/81 04/20/20 09:15 90 121/78 04/20/20 09:00 83 18 132/90 04/20/20 08:45 83 20 131/82 04/20/20 08:30 82 20 135/86 04/20/20 08:15 83 20 127/83 04/20/20 08:00 81 20 123/81 09/15/20 07:45 87 120/83 09/15/20 07:33 83 121/82 04/20/20 07:30 88 126/80 04/20/20 07:19 91 H 82 L 04/20/20 07:16 81 127/80 04/20/20 07:15 83 123/78 04/20/20 07:14 84 75 L 04/20/20 07:09 83 87 L 04/20/20 07:06 91 H 94 04/20/20 07:04 88 84 L 04/20/20 07:00 36.4 C L 85 20 129/87 04/20/20 06:59 84 80 L 04/20/20 06:58 82 91 04/20/20 06:54 83 86 L 04/20/20 06:49 84 90 04/20/20 06:45 81 125/80 04/20/20 06:44 86 86 L 04/20/20 06:39 82 78 L 04/20/20 06:36 85 93 04/20/20 06:34 78 75 L 04/20/20 06:32 18 04/20/20 06:30 85 124/78 04/20/20 06:29 85 78 L 04/20/20 06:24 82 90 04/20/20 06:19 79 79 L 04/20/20 06:15 83 122/83 04/20/20 06:14 85 93 04/20/20 06:09 82 60 L 04/20/20 06:04 81 78 L 04/20/20 06:00 81 115/83 04/20/20 05:59 82 68 L 04/20/20 05:55 83 93 04/20/20 05:54 84 76 L 04/20/20 05:49 81 80 L 04/20/20 05:45 78 126/78 04/20/20 05:44 82 83 L 04/20/20 05:39 81 90 04/20/20 05:34 86 92 04/20/20 05:30 77 118/78 04/20/20 05:29 88 88 L 04/20/20 05:24 82 87 L 04/20/20 05:19 81 86 L 04/20/20 05:15 82 113/72 04/20/20 05:14 81 85 L 04/20/20 05:09 80 86 L 04/20/20 05:04 79 85 L 04/20/20 05:00 77 116/71 04/20/20 04:59 77 84 L 04/20/20 04:55 18 04/20/20 04:54 92 H 84 L 04/20/20 04:49 100 H 80 L 04/20/20 04:45 79 115/79 04/20/20 04:44 81 85 L 04/20/20 04:39 89 84 L 04/20/20 04:34 85 84 L 04/20/20 04:30 86 18 117/77 04/20/20 04:29 81 83 L 04/20/20 04:24 85 84 L 04/20/20 04:19 84 75 L 04/20/20 04:15 89 117/85 04/20/20 04:14 82 66 L 04/20/20 04:09 83 84 L 04/20/20 04:04 79 84 L 04/20/20 04:00 83 18 120/81 04/20/20 03:59 80 89 L 04/20/20 03:54 84 69 L 04/20/20 03:49 84 81 L 04/20/20 03:45 83 117/74 04/20/20 03:44 82 85 L 04/20/20 03:39 80 89 L 04/20/20 03:34 78 87 L 04/20/20 03:30 36.7 C 83 18 115/74 04/20/20 03:29 78 85 L 04/20/20 03:24 87 83 L 04/20/20 03:19 89 82 L 04/20/20 03:15 83 109/67 04/20/20 03:14 78 86 L 04/20/20 03:09 80 84 L 04/20/20 03:04 77 85 L 04/20/20 03:01 71 114/72 Exam (Neuro) Physical Exam: General Exam: GEN: NAD, sitting in bed. HEENT: No conjunctival injection, no rhinorrhea. CV: RRR, no peripheral edema PULM: Nonlabored respirations on room air. Neuro Exam: MS: Awake and Alert. Oriented to person, place, and date. Speech fluent and appropriate without dysarthria or paraphasic errors. Language intact including naming, comprehension, repetition. Cognition and memory grossly intact. Attention intact. No neglect. CN: Visual urias full. No extinction to double simultaneous stimuli. No optic disc edema on fundoscopic exam. PERRLA OU. EOMI without nystagmus. Facial sensation intact to LT. Facial muscles full and symmetric. Hearing intact to conversation. Uvula midline with symmetric palatal elevation. Shoulder shrug normal. Tongue midline. MOTOR: Normal bulk and tone. No pronator drift. BUE strength 5/5 at deltoids, biceps, triceps, wrist flexors and extensors, and hand grasp bilaterally. BLE strength 5/5 at iliopsoas, hamstrings, quadriceps, tibialis anterior, and gastrocnemius bilaterally. REFLEXES: 2+ at biceps, triceps, brachioradialis, 2+ patella and Achilles bilaterally. Flexor plantar responses bilaterally. SENSORY: Intact to LT without extinction to double simultaneous stimuli. Vibration intact throughout. COORDINATION: No dysmetria or ataxia on [id number] bilaterally. Normal Adilson bilaterally. GAIT: normal gait and armswing PG Care Time/CCT Total # of Minutes Spent Total Time Spent with Patient: Total time spent is greater than 50% in coordination of care (as documented) at patient's floor/unit and/or counseling patient: Coding Level of Care Code 36936 Subseq Hosp Care Lvl 2 Diagnoses Fibrolipoma of filum terminale D17.79
[2020-04-20] MEDS: IBUPROFEN 600 MG TAB PO PRN (20:03)
[2020-04-20] MEDS: ACETAMINOPHEN 325 MG TAB PO PRN (23:18)
[2020-04-21] MEDS: IBUPROFEN 600 MG TAB PO PRN ×5 (03:53→20:33)
[2020-04-21 06:14] LABS: Hematocrit (blood only) 30.7 % (37-47); Hemoglobin 10.1 g/dL (12.0-16.0)
--- NOTE | 2020-04-21 06:58 | Medical Student Progress Note ---
Date of Service April 21, 2020 Assessment & Plan Admission and Anticipated Discharge Date Admission Date: April 19, 2020 The patient is a 24 year old woman who is 1 day post induced vaginal delivery at 41.2 weeks GA due to being postdate. During labor, she had a third degree and right labial laceration and repair. This morning she is feeling fine but is having some abdominal tenderness and trouble . She is GBS-, Rh-, rubella immune, and blood type A-. Plan: Monitor abdominal tenderness. Refer to virtualization consultant for help with . Continue to ambulate and eat solids as tolerated. Monitor urinary symptoms and check bladder scan if unable to void in a few hours. Assess if topical needed for local epidural tape reaction. Continue on motrin to control swelling and pain. Follow-up with neurology concerning spine abnormality and PT for pelvic floor post-recovery. Subjective Post Induced Vaginal Delivery Progress Note The patient is a 24 year old woman who is 1 day post induced vaginal delivery at 41.2 weeks GA due to being postdate to an 8lb 2ox boy. Due date was 04/10/20 by ultrasound with uncertain LMP. During labor, she had a third degree and right labial laceration and repair. This morning she is feeling fine. She is but is having some difficulty and may try pumping and bottle feeding. The was not able to void when she had the urge to urinate so a catheter was placed last night and removed this morning. She has been passing gas. Pain is rated 1 or 2/10 and is being well controlled with motrin. She notes some itchiness from the epidural tape last night. She is experiencing some red lochia, mostly when her abdomen is being examined, that has decreased in amount since yesterday. Physical Exam Constitutional: WD/WN, vitals as above Respiratory: normal respiratory effort, lungs clear to auscultation Cardiovascular: RRR, no murmur, no edema Heart Sounds: normal S1 and normal S2 Extremities: no calf tenderness and no varicosities Gastrointestinal (Abdomen): Abdomen tender. Fundus firm per Dr. Herrera Skin: Erythema and rash on mid back following pattern of epidural tape. No tape residue seen Psychiatric: A+Ox3, euthymic affect Results & Data ([facility]) Vital Signs (Past 12 Hours) Vital Signs Temp Pulse Resp BP 04/21/20 04:00 36.7 C 74 18 116/64 04/20/20 23:10 36.4 C L 66 18 116/76 04/20/20 20:00 36.8 C 94 H 18 123/79 Tmax:37.5 Hgb: 10.1 down from 12.3 pre-delivery Hct: 30.7 down from 37.2 pre-delivery
--- NOTE | 2020-04-21 07:52 | Obstetrical Progress Note ---
Date of Service April 21, 2020 Assessment & Plan (1) Encounter for care and examination after delivery: Dr. Cage's input appreciated will monitor for ability to void adequately. would like to hold off on pelvic floor PT for now. continue rest of current care plan Subjective Ambulation: ambulating normally Voiding: watters catheter in place (catheter removed at 0600) Diet Tolerance:: regular diet Lochia:: Small Feeding Type:: breast feeding unable to void yesterday- cathed for 1100 cc urine and 2nd cath for 700cc- Watters placed in the AM yesterday. no urge to void yet. Review of Systems All systems reviewed & are unremarkable except as noted in HPI & below Physical Exam Constitutional WD/WN, vitals as above Psychiatric A+Ox3, euthymic affect Genitourinary OB Exam Abdomen: + fundal height Fundus: + firm and + relation to umbilicus (at U) Results & Data ([facility]) Vital Signs (Past 12 Hours) Vital Signs Temp Pulse Resp BP 04/21/20 04:00 98.1 F 74 18 116/64 04/20/20 23:10 97.5 F L 66 18 116/76 04/20/20 20:00 98.2 F 94 H 18 123/79
[2020-04-21] MEDS: PRENATAL VITAMIN 1 TAB PO SCH (08:57)
[2020-04-21] MEDS: DOCUSATE SODIUM 100 MG CAP PO SCH ×2 (08:57→20:33)
[2020-04-21] MEDS: ACETAMINOPHEN 325 MG TAB PO PRN (23:16)
[2020-04-22] MEDS: IBUPROFEN 600 MG TAB PO PRN ×3 (01:33→14:06)
[2020-04-22] MEDS: ACETAMINOPHEN 325 MG TAB PO PRN (05:05)
--- NOTE | 2020-04-22 06:56 | Obstetrical Progress Note ---
Date of Service April 22, 2020 Assessment & Plan (1) Encounter for care and examination after delivery: Recovering well PPD#2, for discharge today, instructions reviewed. Subjective Ambulation: ambulating normally Voiding: no voiding problems Passing Gas:: Yes Diet Tolerance:: regular diet Lochia:: Small Feeding Type:: breast feeding Current Pain Level(1-10): 0 Physical Exam Constitutional WD/WN, vitals as above Eyes PERRL, conjunctivae normal, anicteric sclerae ENMT external ear and nose normal, oropharynx normal Neck trachea midline, no thyromegaly Respiratory normal respiratory effort and able to speak in complete sentences; no respiratory distress, no labored breathing and does not use accessory muscles Cardiovascular Rate/Rhythm: regular rate and regular rhythm Extremities: no calf tenderness and no pedal edema Chest (Breasts) Breast: normal inspection of breasts Gastrointestinal (Abdomen) Inspection/Auscultation: abdomen normal to inspection; abdomen not distended Musculoskeletal no cyanosis or clubbing, extremities motor strength 5/5 Skin no rashes, warm and dry Neurologic patellar DTR's 2+ bilat, sensation intact Psychiatric A+Ox3, euthymic affect Genitourinary Speculum/Bimanual Exam: uterus nontender OB Exam Abdomen: + fundal height (at umbilicus) Fundus: + firm Results & Data ([facility] [place]) Vital Signs (Past 12 Hours) Vital Signs Temp Pulse Resp BP 04/21/20 23:10 98.2 F 91 H 20 122/82 04/21/20 19:55 98.1 F 87 18 106/72
[2020-04-22] MEDS: PRENATAL VITAMIN 1 TAB PO SCH (08:18)
[2020-04-22] MEDS: DOCUSATE SODIUM 100 MG CAP PO SCH (08:18)
== END 2020-04-22 14:30 | disposition home or self-care (01) | DRG 768 ==
LOC: 4S1 07:39 → 4S2 04-20 10:45

== ENCOUNTER 2025-03-19 07:52 | Inpatient (IN) ==
--- NOTE | 2025-03-19 08:00 | History & Physical Report ---
Date of Service March 19, 2025 Assessment & Plan (1) Encounter for induction of labor: Plan: Patient is 40w 4d here for IOL. Will order Pitocin to induce labor, then AROM. Heart Assessment is Cat. 1. Expecting vaginal delivery. Will continue to monitor. Admission and Anticipated Discharge Date Admission Date: March 19, 2025 History of Present Illness Chief Complaint: IOL Primary Care Provider: Henny Ramos, DO 29yo at 40w4d admitted for IOL for postdates. Patient denies feeling any contractions, or fluid loss. Patient admits to feeling movement, and having regular care. Patient also admits to a little bit of blood yesterday but it was after having a cervical exam by Dr. Dias yesterday. Patient admits to nipple pain in both breasts. Patient also admits to getting sinus headaches from weather changes, patient denies current headache. Patient also admits to getting "Kayden horses" in both legs. Denies fevers/chills/sweats, CP, SOB, dysuria. GBS neg, RH neg Need for Rhogam due to RH Negative Mother *given 08/20/24 for 1st tri spotting - SP; again 12/24 vaping *enc to quit Labs Lab Results OB Labs: Blood Type A Negative 08/20/24 Antibody Screen NEGATIVE 12/24/24 Hgb 10.8 g/dl (12.0-16.0) L 12/24/24 Hct 33.0 % (37.0-47.0) L 12/24/24 MCV 90.2 fL (80.0-100.0) 08/20/24 Plt Count 315 K/uL (130-400) 08/20/24 Rubella IgG Antibody Immune (Immune) 08/20/24 RPR Nonreactive (Nonreactive) 11/13/19 Treponema pallidum Ab Negative (Negative) 12/24/24 Hep Bs Antigen Negative (Negative) 08/20/24 Hepatitis C Antibody Negative (Negative) 08/20/24 HIV 1&2 Ab/P24 Ag 4thGn Negative (Negative) 08/20/24 Glucose 1 Hr 50 gm 101 mg/dl (70-130) 12/24/24 OB Optional Labs: Chlamydia trachomatis RNA Not Detected (NotDetected) 08/20/24 Neisseria gonorrhoeae RNA Not Detected (NotDetected) 08/20/24 Labs Reviewed: neg cf/sma 2020 - sln gbs neg--akh low risk panorama Allergies Allergy/AdvReac Type Severity Reaction Status Date / Time benzoyl peroxide Allergy Unknown HIVES Verified 03/19/25 09:35 Home Medications Medication Instructions Recorded Confirmed Type breast pump #1 ea 02/19/25 03/18/25 Rx ferrous sulfate 27 mg iron tablet 27 mg PO DAILY 03/19/25 03/19/25 History vits no.124-ferrous fum 1 tab PO DAILY 03/19/25 03/19/25 History 27 mg iron-folic acid 800 mcg tablet ( Vitamin) Patient History Medical History Fibrolipoma of filum terminale Urge incontinence of urine Varicella vaccine Acute bronchitis Surgical History H/O sinus surgery 2022 H/O oral surgery S/P dilatation and curettage D&E 2016 Family History Father Hypertension Diabetes Grandmother (Maternal) Diabetes Grandmother (Paternal) Coronary heart disease Grandfather Heart disease Denies family history of Ovarian cancer Breast cancer Colorectal cancer Social History (Updated 08/14/24 @ 13:47 by Fallon Sims) Smoking Status: Current every day smoker Tobacco Type: E-cigarettes / Vaping Do You Dip or Chew Tobacco: No; Hx Alcohol Use: No Hx Substance Use: No Preferred Language: Serbian Optoelectronic Technician Required: No Beliefs That Will Affect Care: Moravian Moravian Beliefs: Restorationism marital status: Single marital status details: Adam Martin (28) [phone] Current Living Situation: Parent, Family and Significant Other Current Living Situation Comment: Adam and son .Cats- FOB for litter current occupational status: employed current occupation: [employer] Feels Safe at Home: Yes Safety Concerns: Feels Safe At This Time Assistive Devices: Glasses OB History Past Pregnancies Del. Date GA wks Lbr Lgth wt Sex Type del Anes Place Del Prov ? Comment 05/06/17 10 Aborted-Spontaneous Dr. Toussaint D&E 04/20/20 41 8lbs 3.4 oz M E pidural [facility] Spike No 05/07/24 Aborted-Spontaneous [employer] History non contributory Review of Systems as per Subjective HPI Physical Exam Constitutional: WD/WN, vitals as above Respiratory: normal respiratory effort, lungs clear to auscultation Cardiovascular: Rate/Rhythm: regular rate and regular rhythm Heart Sounds: normal S1 and normal S2; no murmur Extremities: + edema (trace); no calf tenderness Gastrointestinal (Abdomen): Percussion/Palpation: abdomen soft; abdomen nontender Skin: no rashes, warm and dry Psychiatric: Eye Contact: good eye contact Speech: normal rate/rhythm/volume of speech Thought Process: linear/logical thought process Genitourinary: cervix exam per Dr. Dias Monitoring External Monitor Baseline: 135 Variability: Moderate Accels: Present Early Decels: None Variable Decels: None Late Decels: None Tocodynamometer mild and irregular Supervising Physician Co-Signing Physician Notes Resident Physician Supervision Note: I was present with Dr. Stephen during the history and exam. I discussed the case with the resident and agree with the findings and plan as documented in the note. Any exceptions or clarifications are listed here: admitted for postdates induction. plan pit /arom. efw 7-8#, abd gravid nt, ext nt calves. no edema. fhts categ 1. sve 2+/70/-2 arom clear. start pitocin, epidural when desires. Documented By: Rachelle Dias MD, FACOG
[2025-03-19] MEDS ORDERED: OXYTOCIN 30 UNITS/NSS 30 UNITS/500 ML BAG IV PRN ×2 (08:15→16:12)
[2025-03-19] MEDS ORDERED: LIDOCAINE 1% LOCAL 20 ML VIAL INFIL PRN (08:15)
[2025-03-19 08:56] LABS: Hematocrit (blood only) 33.7 % (37.0-47.0); Hemoglobin 11.4 g/dl (12.0-16.0); Mean Corpuscular Hemoglobin 29.5 pg (25.0-34.0); Mean Corpuscular Volume 87.1 fL (80.0-100.0); Platelet Count 247 K/uL (130-400); RDW Standard Deviation 45.7 fL (36.4-46.3); Red Blood Count 3.87 M/uL (4.20-5.40); White Blood Count 8.45 K/ul (4.8-10.8)
[2025-03-19] MEDS: LACTATED RINGER'S 1,000 ML IV PRN (09:03)
[2025-03-19] MEDS: OXYTOCIN 30 UNITS/NSS 30 UNITS/500 ML BAG IV PRN (09:11)
[2025-03-19] MEDS ORDERED: fentANYL 2 MCG/ML BUPIVacaine 0.125%-NSS 100ML BAG EPI PRN (12:53)
[2025-03-19] MEDS ORDERED: NALBUPHINE HCL INJ 10 MG/ML AMP IV PRN (12:53)
[2025-03-19] MEDS ORDERED: diphenhydrAMINE 50 MG/ML VIAL IV PRN (12:53)
[2025-03-19] MEDS ORDERED: LIDOCAINE 2% MPF LOCAL 5 ML VIAL EPI PRN (12:53)
[2025-03-19] MEDS ORDERED: ROPIVACAINE 0.5% PF 5 MG/ML 20 ML VIAL EPI PRN (12:53)
[2025-03-19] MEDS ORDERED: SODIUM CHLORIDE 0.9% PF INJ 10 ML VIAL EPI PRN (12:53)
[2025-03-19] MEDS ORDERED: BUPIVACAINE 0.25% PF 30 ML VIAL EPI PRN (12:53)
[2025-03-19] MEDS ORDERED: NALOXONE HCL 0.4 MG/1 ML VIAL/CARP IV PRN (12:53)
[2025-03-19] MEDS ORDERED: NALOXONE HCL 1 MG in SODIUM CHLORIDE 0.9% 1,000 ML IV PRN (12:53)
--- NOTE | 2025-03-19 12:53 | Anesthesiology Consultation ---
Date of Service March 19, 2025 Assessment & Plan Chart Review Chart Review: Acceptable Risk for Labor Epidural Consults Requested none History Height/Weight Height: 5 ft 2 in Weight: 72.121 kg Allergies Allergy/AdvReac Type Severity Reaction Status Date / Time benzoyl peroxide Allergy Unknown HIVES Verified 03/19/25 09:35 Medications Home Medications Medication Instructions Recorded Confirmed Last Taken breast pump #1 ea 02/19/25 03/18/25 Unknown ferrous sulfate 27 mg iron tablet 27 mg PO DAILY 03/19/25 03/19/25 03/19/25 07:00 vits no.124-ferrous fum 1 tab PO DAILY 03/19/25 03/19/25 03/19/25 07:00 27 mg iron-folic acid 800 mcg tablet ( Vitamin) Active Medications Generic Name Dose Route Start Last Admin Trade Name Freq PRN Reason Stop Dose Admin Oxytocin 30 units in 500 mls @ 9 mls/hr 03/19/25 08:15 03/19/25 11:15 Pitocin 30 Units/Nss IV 03/21/25 08:14 0.54 units/hr .Q24H PRN 9 mls/hr Labor Induction/Augmentation Titration Protocol 0.54 UNITS/HR Lactated Ringer's 1,000 mls @ 125 mls/hr 03/19/25 08:15 03/19/25 12:44 Lr IV 03/21/25 08:14 125 mls/hr .Q8H PRN Infusion L&D Protocol Protocol Past Medical History Medical History Fibrolipoma of filum terminale Urge incontinence of urine Varicella vaccine Acute bronchitis Past Family History Family History Father Hypertension Diabetes Grandmother (Maternal) Diabetes Grandmother (Paternal) Coronary heart disease Grandfather Heart disease Denies family history of Ovarian cancer Breast cancer Colorectal cancer Past Surgical History Surgical History H/O sinus surgery 2022 H/O oral surgery S/P dilatation and curettage D&E 2016 Social History Smoking Status: Current every day smoker tobacco type: e-cigarettes Do You Dip or Chew Tobacco: No Hx Alcohol Use: No Hx Substance Use: No substance use type: does not use Physical Exam Vital Signs Last Vital Signs Temp 36.6 C 03/19/25 11:20 Pulse 85 03/19/25 12:51 Resp 18 03/19/25 11:20 BP 125/87 03/19/25 11:16 Pulse Ox 99 03/19/25 12:51 Testing Laboratory Results 03/19/25 08:37
[2025-03-19] MEDS: fentANYL 2 MCG/ML BUPIVacaine 0.125%-NSS 100ML BAG ONE (13:14)
[2025-03-19] MEDS: LIDOCAINE 2%/EPINEPHRINE 1:200,000 20 ML PF ONE (13:20)
--- NOTE | 2025-03-19 13:26 | Labor Progress Brief Note ---
Date of Service March 19, 2025 Subjective pt comfortable with epidural. Assessment & Plan (1) Encounter for induction of labor: Plan some cx change. cont to inc pit to achieve labor pattern. fhts categ 1. Admission and Anticipated Discharge Date Admission Date: March 19, 2025 Physical Exam Constitutional: WD/WN, vitals as above Genitourinary: Manual OB Exam: + cervical dilation (3-4cm), + cervical effacement 80%, + station -1 and + amniotic fluid clear OB Exam Monitor Tracing: + external FHT monitor used, + external uterine monitor used (q2-4 pit at 9), + category I and + normal FHT variability Results & Data Vital Signs (Past 12 Hours) Vital Signs Temp Pulse Resp BP Pulse Ox 03/19/25 13:23 97 03/19/25 13:23 89 03/19/25 13:22 88 03/19/25 13:22 110/73 03/19/25 13:20 85 03/19/25 13:20 114/72 03/19/25 13:18 98 03/19/25 13:18 87 03/19/25 13:18 87 03/19/25 13:18 113/71 03/19/25 13:16 87 03/19/25 13:16 110/71 03/19/25 13:14 93 H 03/19/25 13:14 114/74 03/19/25 13:13 97 03/19/25 13:13 92 H 03/19/25 13:12 88 03/19/25 13:12 114/74 03/19/25 13:10 93 H 03/19/25 13:10 124/80 03/19/25 13:08 87 03/19/25 13:08 122/76 03/19/25 13:07 94 03/19/25 13:07 86 03/19/25 13:07 18 03/19/25 13:07 97.9 F 18 03/19/25 13:06 96 03/19/25 13:06 91 H 03/19/25 13:06 83 03/19/25 13:06 130/75 03/19/25 13:01 98 03/19/25 13:01 89 03/19/25 12:53 93 03/19/25 12:53 88 03/19/25 12:51 99 03/19/25 12:51 85 03/19/25 12:46 100 03/19/25 12:46 88 03/19/25 12:44 92 03/19/25 12:44 82 03/19/25 12:41 100 03/19/25 12:41 83 03/19/25 12:36 100 03/19/25 12:36 82 03/19/25 12:23 100 03/19/25 12:23 85 03/19/25 12:18 99 03/19/25 12:18 87 03/19/25 11:20 18 03/19/25 11:20 97.9 F 18 03/19/25 11:16 82 03/19/25 11:16 125/87 03/19/25 10:50 18 03/19/25 10:50 18 03/19/25 10:20 18 03/19/25 10:20 18 03/19/25 10:20 18 03/19/25 10:20 18 03/19/25 10:15 86 03/19/25 10:15 121/85 03/19/25 09:20 18 03/19/25 09:20 18 03/19/25 08:18 93 H 03/19/25 08:18 116/75 03/19/25 08:02 98.1 F 91 H 22 136/85 03/19/25 08:00 91 H 136/85 Coding Level of Care Code None Diagnoses Encounter for induction of labor Z34.90
--- NOTE | 2025-03-19 15:58 | Delivery Summary ---
Vaginal Delivery Summary Date of Service March 19, 2025 Vaginal Delivery Summary The patient dilated to complete and pushed to deliver a viable male Apgars 8 and 9 via over intact perineum. Mouth and nose bulb suctioned at perineum. Shoulders and body delivered with ease. Body cord noted. was vigorous and crying at . Cord clamped at 30 seconds of life and infant to maternal abdomen where the cord was then doubly clamped and cut. Placenta delivered spontaneously and intact, three-vessel cord. Hemostasis achieved with dilute pitocin and uterine massage. Small right labia laceration noted and not bleeding and so not repaired. Small left hymenal area hematoma noted and not expanding over 20min. Cervix and sulci intact. QBL 434 cc. Mother and baby stable in recovery. [facility] Vaginal Delivery Charge Delivery Type Details:
[2025-03-19] MEDS ORDERED: ACETAMINOPHEN 325 MG TAB PO PRN (16:12)
[2025-03-19] MEDS ORDERED: NON-FORMULARY MEDICATION (Breast Pump device) SCH (16:12)
[2025-03-19] MEDS ORDERED: DIPHTHER/TETAN/PERTUS Vaccine (Tdap, Adol/Adult) 0.5mL IM ONE (16:12)
[2025-03-19] MEDS ORDERED: HYDROCORTISONE ACETATE 25 MG SUPP PR PRN (16:12)
--- NOTE | 2025-03-19 16:37 | Anesthesia Procedure Note ---
Date of Service March 19, 2025 Anesthesia Post Epidural Note Vital Signs Vital Signs: Temp Pulse Resp BP Pulse Ox 36.6 C 93 H 18 123/68 98 03/19/25 13:07 03/19/25 16:25 03/19/25 15:31 03/19/25 16:25 03/19/25 16:08 Notes Mental Status: alert / awake / arousable and participated in evaluation Nausea / Vomiting: adequately controlled Pain: adequately controlled Airway Patency, RR, SpO2: stable & adequate BP & HR: stable & adequate Hydration State: stable & adequate Neuraxial Anesthesia: was administered and sensory block is resolving Anesthetic Complications: no major complications apparent and Pt Satisfied with anesthetic care Epidural: Removed without complications and With tip intact
[2025-03-19] MEDS: SODIUM CHLORIDE 0.9% PF INJ 10 ML VIAL ONE (17:50)
[2025-03-19] MEDS: BUPIVACAINE 0.25% PF 30 ML VIAL ONE (17:50)
[2025-03-19] MEDS: BUPIVACAINE 0.25% PF 30 ML VIAL EPI STA (17:51)
[2025-03-19] MEDS: SODIUM CHLORIDE 0.9% PF INJ 10 ML VIAL EPI STA (17:51)
[2025-03-19] MEDS: LIDOCAINE 2%/EPINEPHRINE 1:200,000 20 ML PF EPI STA (17:51)
[2025-03-19] MEDS: DOCUSATE SODIUM 100 MG CAP PO SCH (21:16)
[2025-03-20] MEDS: IBUPROFEN 600 MG TAB PO PRN (06:17)
[2025-03-20] MEDS: PRENATAL VITAMIN 1 TAB PO SCH (08:05)
--- NOTE | 2025-03-20 08:39 | Obstetrical Progress Note ---
Date of Service March 20, 2025 Assessment & Plan (1) care and examination: Plan doing well. routine care. may desire dc later today,instructions reviewed. Subjective Ambulation: ambulating normally Voiding: no voiding problems Diet Tolerance:: regular diet Lochia:: Small Feeding Type:: breast feeding some low back pain. Constitutional: + as per Subjective / HPI Physical Exam Constitutional WD/WN, vitals as above Respiratory normal respiratory effort, lungs clear to auscultation Cardiovascular Rate/Rhythm: regular rate and regular rhythm Gastrointestinal (Abdomen) Inspection/Auscultation: abdomen normal to inspection Percussion/Palpation: abdomen soft Fundus firm 2cm down Musculoskeletal nt calves no edema Neurologic grossly normal Psychiatric A+Ox3, euthymic affect Results & Data Vital Signs (Past 12 Hours) Vital Signs Temp Pulse Resp BP Pulse Ox O2 Del Method 03/20/25 07:55 97.9 F 80 16 117/61 98 Room Air 03/20/25 03:03 98.1 F 83 18 139/87 98 Room Air 03/19/25 22:54 98.2 F 83 16 112/74 96 Room Air
[2025-03-20] MEDS: BENZOCAINE 20% SPRY 85 APPLN/85 GM CAN EXT PRN (20:32)
[2025-03-20 23:01] VITALS: RESP 16
[2025-03-21 01:04] VITALS: O2SAT 98
--- NOTE | 2025-03-21 06:35 | Obstetrical Progress Note ---
Date of Service March 21, 2025 Assessment & Plan (1) care and examination: Plan: Patient is post status post day 2. Patient is currently stable and desires to go home today. Will discharge today. Admission and Anticipated Discharge Date Admission Date: March 19, 2025 Supervising Physician Co-Signing Physician Notes Patient seen with resident agree with the above findings and plan. Stable for discharge today. Subjective 29 yo post- day 2 s/p [] Ambulation: ambulating normally Voiding: no voiding problems Passing Gas:: Yes Diet Tolerance:: regular diet Feeding Type:: breast feeding Current Pain Level:Improved pain. Patient notes the pain she does get is if she presses her abdomen below her belly button. Resting comfortably this AM in NAD. Patient admits to a blister on her breast and breast pain from latching. Patient also admits to a headache but states its from her being tired. Denies fevers/chills, CP/palp, SOB/cough/wheezing, N/V, LE pain, breast dschrg, UTI Sx. Review of Systems Review of Systems: as per Subjective HPI Physical Exam Constitutional: WD/WN, vitals as above Respiratory: normal respiratory effort, lungs clear to auscultation Cardiovascular: Rate/Rhythm: regular rate and regular rhythm Heart Sounds: normal S1 and normal S2; no murmur Extremities: + edema (trace); no calf tenderness Gastrointestinal (Abdomen): Percussion/Palpation: + abdomen tender (RLQ and suprapubic) and abdomen soft Skin: no rashes, warm and dry Psychiatric: Eye Contact: good eye contact Speech: normal rate/rhy thm/volume of speech Thought Process: linear/logical thought process Genitourinary: uterus was firm and @ level of umbilicus. Results & Data Vital Signs (Past 12 Hours) Vital Signs Temp Pulse Resp BP Pulse Ox O2 Del Method 03/21/25 00:20 36.4 C L 82 16 118/79 98 Room Air 03/20/25 20:10 36.4 C L 78 16 125/81 100 Room Air Laboratory Results Lab Results 03/19/25 03/20/25 Range/Units 08:37 06:52 WBC 8.45 (4.8-10.8) K/ul RBC 3.87 L (4.20-5.40) M/uL Hgb 11.4 L (12.0-16.0) g/dl Hct 33.7 L (37.0-47.0) % MCV 87.1 (80.0-100.0) fL MCH 29.5 (25.0-34.0) pg MCHC 33.8 (32.0-36.0) g/dL RDW Std Deviation 45.7 (36.4-46.3) fL RDW Coeff of Sunny 14.5 (11.5-14.5) % Plt Count 247 (130-400) K/uL MPV 10.0 (9.4-12.4) fL Treponema pallidum Ab Negative (Negative) Blood Type A Negative Antibody Screen NEGATIVE Screen Negative (Negative)
[2025-03-21 09:09] VITALS: BP 117/82; PULSE 80; TEMP 97.7
== END 2025-03-21 12:25 | disposition home or self-care (01) | DRG 807 ==
LOC: 4S1 07:52 → 4E2 18:20